=== PATIENT | female | born 1940 | race Caucasian/White ===

== ENCOUNTER 2017-12-10 06:26 | Day surgery (SDC) | payer MEDICARE ==
[2017-12-09 14:58] VITALS: BP 123/61
[2017-12-09 15:03] LABS: BASOPHILS % (AUTO) 2.2 % (0.0-5.0); EOSINOPHILS % (AUTO) 3.9 % (0.0-8.0); HEMATOCRIT 34.1 % (36-48); LYMPHOCYTES % (AUTO) 21.5 % (21.0-51.0); MEAN CORPUSCULAR HEMOGLOBIN 32.3 pg (27.0-33.0); MEAN CORPUSCULAR HGB CONC 33.6 g/dL (32.0-36.0); MEAN CORPUSCULAR VOLUME 96.2 fL (79-99); MONOCYTES % (AUTO) 8.6 % (3.0-13.0); NEUTROPHILS % (AUTO) 63.8 % (40.0-77.0); NUCLEATED RED BLOOD CELLS 0.1 % (0.0-0.19); PLATELET COUNT (AUTO) 189 K/uL (130-400); RED BLOOD CELL COUNT(AUTO) 3.55 MIL/uL (4.00-5.50); RED CELL DISTRIBUTION WIDTH 14.2 % (11.0-15.5); WHITE BLOOD COUNT (AUTO) 7.3 K/uL (4.8-10.8)
[2017-12-09 15:12] LABS: CREATININE 2.1 mg/dL (0.5-1.5); POTASSIUM 4.7 mmol/L (3.5-5.1)
[~2017-12-10] VITALS: Ht 149.9 cm; Wt 75.7 kg
[2017-12-10] VITALS (18 sets, daily range): BP systolic 99–113; BP diastolic 49–68
[2017-12-10] MEDS: CLINDAMYCIN 900 MG/D5% WATER 50 ML IV SCH ×2 (06:00→09:35)
[~2017-12-10 06:26] MED LIST: AMLO5TAB7 PO; ATEN50TA PO; FURO20TA6 PO; GABA-533 PO; HYDR-4064 PO; MULT-1258 PO; PANT40TA25 PO
[2017-12-10] MEDS ORDERED: LACTATED RINGERS 1000ML 1,000 ML IV ONE (07:35)
[2017-12-10] MEDS ORDERED: CLINDAMYCIN PHOSPHATE 150 MG/ML 6ML VIAL ONE (08:18)
[2017-12-10] MEDS ORDERED: LIDOCAINE PF 2% 5ML ABBOJECT ONE (08:31)
[2017-12-10] MEDS ORDERED: FENTANYL CITRATE PF 50 MCG/1 ML 2ML VIAL ONE (08:32)
[2017-12-10] MEDS ORDERED: PROPOFOL 10 MG/ML 20ML VIAL IV ONE (08:32)
[2017-12-10] MEDS ORDERED: FAMOTIDINE/PF 20 MG/2 ML VIAL IV ONE (08:35)
[2017-12-10] MEDS ORDERED: GLYCOPYRROLATE 1 MG/5 ML SYRINGE ONE (09:35)
[2017-12-10] MEDS ORDERED: PHENYLEPHRINE HCL 10 MG/ML 1ML VIAL IV ONE (09:39)
[2017-12-10] MEDS ORDERED: SODIUM CHLORIDE 0.9% 10 ML VIAL ONE (09:39)
[2017-12-10] MEDS ORDERED: LIDOCAINE HCL-MPF 1% 2ML VIAL ONE (10:28)
[2017-12-10] MEDS ORDERED: HYDR-4453 PO (10:41)
[2017-12-10] MEDS ORDERED: CLIN300C3 PO (10:41)
[2017-12-10] MEDS ORDERED: ONDANSETRON HCL 4 MG/2 ML VIAL ONE (10:42)
== END 2017-12-10 12:35 | disposition home or self-care (01) ==
LOC: DAH 06:26
PROVIDERS: ATTEND Orthopaedic Surgery
DX: G56.02 Carpal tunnel syndrome, left upper limb (principal); Z68.32 Body mass index [BMI] 32.0-32.9, adult; Z79.899 Other long term (current) drug therapy; M65.332 Trigger finger, left middle finger; M65.352 Trigger finger, left little finger; I10 Essential (primary) hypertension; K29.70 Gastritis, unspecified, without bleeding; Z98.890 Other specified postprocedural states; Z80.8 Family history of malignant neoplasm of other organs or systems; Z88.8 Allergy status to other drugs, medicaments and biological substances; Z88.0 Allergy status to penicillin; Z88.2 Allergy status to sulfonamides; M19.90 Unspecified osteoarthritis, unspecified site; E04.1 Nontoxic single thyroid nodule; K21.9 Gastro-esophageal reflux disease without esophagitis; I45.10 Unspecified right bundle-branch block
CPT/HCPCS: 26055 ×2; 36415; 64721; 80048; 85025; 93005; A4215; A4649; A4930 ×2; A6223; J2001; J2370; J2405; J2704; J3010; J3490 ×4; J7120

== ENCOUNTER 2018-11-06 11:04 | Emergency (ER) | payer MEDICARE ==
[~2018-11-06 11:04] MED LIST changes: -AMLO5TAB7 PO; +AMLO5TAB9 PO; +CLIN300C3 PO; +HYDR-4453 PO
[2018-11-06] MEDS ORDERED: DEXAMETHASONE SOD PHOSPHATE 10MG/ML 1ML VIAL ONE (12:40)
[2018-11-06] MEDS ORDERED: KETOROLAC TROMETHAMINE 15MG/ML ONE (12:41)
[2018-11-06 12:45] LABS: BASOPHILS % (AUTO) 2.2 % (0.0-5.0); EOSINOPHILS % (AUTO) 2.6 % (0.0-8.0); HEMATOCRIT 32.4 % (36-48); LYMPHOCYTES % (AUTO) 13.3 % (21.0-51.0); MEAN CORPUSCULAR HEMOGLOBIN 32.5 pg (27.0-33.0); MEAN CORPUSCULAR HGB CONC 33.6 g/dL (32.0-36.0); MEAN CORPUSCULAR VOLUME 96.7 fL (79-99); MONOCYTES % (AUTO) 9.3 % (3.0-13.0); NEUTROPHILS % (AUTO) 72.6 % (40.0-77.0); PLATELET COUNT (AUTO) 205 K/uL (130-400); RED BLOOD CELL COUNT(AUTO) 3.35 MIL/uL (4.00-5.50); RED CELL DISTRIBUTION WIDTH 15.1 % (11.0-15.5)
[2018-11-06 12:48] LABS: CREATININE 2.4 mg/dL (0.5-1.5); POTASSIUM 4.2 mmol/L (3.5-5.1)
[2018-11-06 12:53] LABS: BILIRUBIN,TOTAL 0.3 mg/dL (0.2-1.0); TOTAL PROTEIN, SERUM 7.2 g/dL (6.0-8.3)
[2018-11-06] MEDS ORDERED: KETAMINE 50MG/ML SYRINGE 50 MG/ML DISP.SYRIN IV ONE (16:25)
[2018-11-06] MEDS ORDERED: SODIUM CHLORIDE 0.9% 100 ML IV ONE (16:26)
== END 2018-11-06 17:38 | disposition home or self-care (01) ==
LOC: EDH 11:04
DX: M54.17 Radiculopathy, lumbosacral region (principal); M10.9 Gout, unspecified; I10 Essential (primary) hypertension; Z88.1 Allergy status to other antibiotic agents; Z88.0 Allergy status to penicillin; Z88.6 Allergy status to analgesic agent; Z88.2 Allergy status to sulfonamides; Z88.8 Allergy status to other drugs, medicaments and biological substances; Z90.49 Acquired absence of other specified parts of digestive tract; Z98.890 Other specified postprocedural states; Z87.891 Personal history of nicotine dependence
CPT/HCPCS: 36415; 80053; 85025; 96374; 96375; 99284; J1100; J1885; J3490

== ENCOUNTER 2018-11-14 17:48 | Inpatient (IN) | payer MEDICARE ==
[~2018-11-14] VITALS: Ht 152.4 cm; Wt 75.4 kg
[2018-11-14] MEDS ORDERED: MEROPENEM 500 MG VIAL ONE (18:19)
[2018-11-14] MEDS ORDERED: FLUCONAZOLE 100 MG TAB ONE (18:19)
[2018-11-14] MEDS ORDERED: ENOXAPARIN SODIUM 30 MG/0.3 ML SQ ONE (18:20)
[2018-11-14] MEDS ORDERED: ZYVOX 600 MG TAB ONE (18:20)
[2018-11-14] MEDS ORDERED: SODIUM CHLORIDE 0.9% 50 ML IV ONE (18:22)
[2018-11-14 18:39] LABS: BASOPHILS % (AUTO) 0.5 % (0.0-5.0); EOSINOPHILS % (AUTO) 0.3 % (0.0-8.0); HEMATOCRIT 36.4 % (36-48); LYMPHOCYTES % (AUTO) 6.1 % (21.0-51.0); MEAN CORPUSCULAR HGB CONC 33.4 g/dL (32.0-36.0); MEAN CORPUSCULAR VOLUME 95.8 fL (79-99); MONOCYTES % (AUTO) 4.4 % (3.0-13.0); NEUTROPHILS % (AUTO) 88.7 % (40.0-77.0); PLATELET COUNT (AUTO) 295 K/uL (130-400); RED CELL DISTRIBUTION WIDTH 15.2 % (11.0-15.5); WHITE BLOOD COUNT (AUTO) 23.2 K/uL (4.8-10.8)
[2018-11-14 19:00] LABS: ALBUMIN 3.5 g/dL (3.5-5.0); BILIRUBIN,DIRECT 0.1 mg/dL (0.0-0.3); BILIRUBIN,TOTAL 0.3 mg/dL (0.2-1.0); CREATININE 2.4 mg/dL (0.5-1.5); POTASSIUM 4.5 mmol/L (3.5-5.1); TOTAL PROTEIN, SERUM 7.3 g/dL (6.0-8.3)
[2018-11-14 19:09] LABS: B-TYPE NATRIURETIC PEPTIDE 118 pg/mL (0-100)
[2018-11-14] MEDS ORDERED: INSULIN HUMULIN R 100 UNIT/ML 3ML ONE (20:06)
[2018-11-14 20:28] LABS: APPEARANCE,URINE Clear (CLEAR); BILIRUBIN,URINE Negative (NEGATIVE); COLOR,URINE Yellow (YELLOW); GLUCOSE, URINE (UA) 500 mg/dL (NEGATIVE); KETONES,URINE Negative (NEGATIVE); LEUKOCYTE ESTERASE ,URINE Moderate (NEGATIVE); NITRATE,URINE Negative (NEGATIVE); OCCULT BLOOD,URINE Negative (NEGATIVE); PH,URINE 5.5 (5.0-8.0); PROTEIN,URINE Negative (NEGATIVE); UROBILINOGEN,URINE 0.2 mg/dL (0.2-1.0)
[2018-11-14 20:42] LABS: BACTERIA,URINE Few /HPF (None Seen); RBC,URINE 0-1 /HPF (0-1)
[2018-11-14] MEDS ORDERED: POTASSIUM CHLORIDE 20MEQ/100ML 100 ML IV PRN (20:45)
[2018-11-14] MEDS ORDERED: POTASSIUM CHLORIDE 20 MEQ ERTAB PO PRN (20:45)
[2018-11-14] MEDS ORDERED: LIDOCAINE HCL-MPF 1% 2ML VIAL IJ PRN (20:45)
[2018-11-14] MEDS ORDERED: ACETAMINOPHEN 325 MG TAB PO PRN (20:45)
[2018-11-14] MEDS ORDERED: POTASSIUM CHLORIDE 10% ELIXIR 20 MEQ/15 ML UDCUP PO PRN (20:45)
[2018-11-14] MEDS ORDERED: ONDANSETRON HCL 4 MG/2 ML VIAL IVP PRN (20:45)
[2018-11-14] MEDS ORDERED: ZOLPIDEM TARTRATE 5 MG TAB PO PRN (20:45)
[2018-11-14] MEDS ORDERED: SODIUM CHLORIDE 0.9% 10 ML VIAL IVP PRN (20:45)
[2018-11-14] MEDS ORDERED: DIPHENHYDRAMINE HCL 25 MG CAPSULE PO PRN (20:45)
[2018-11-14] MEDS: FAMOTIDINE 20MG TAB 20 MG TAB PO SCH (21:00)
[2018-11-14] MEDS ORDERED: IPRATROPIUM/ALBUTEROL SULFATE 3 ML SOLUTION IH ONE (21:59)
[2018-11-14] MEDS ORDERED: ACETYLCYSTEINE 20% 200MG/ML 4ML VIAL ONE (23:18)
[2018-11-14] MEDS: ACETYLCYSTEINE 20% 200MG/ML 4ML VIAL IH SCH (23:35)
[2018-11-14] MEDS: IPRATROPIUM/ALBUTEROL SULFATE 3 ML SOLUTION IH SCH (23:35)
[2018-11-15 04:45] VITALS: BP 136/69
--- NOTE | 2018-11-15 04:46 | NUR ---
ADMISSION. PT ADMITTED INTO ROOM 405 FROM ER. PT AWAKE, ALERT AND RESPONSIVE, NO C/O PAIN OR DISCOMFORT AT THIS TIME. NO C/O SHORTNESS OF BREATH AT THIS TIME. PT ORIENTED TO ROOM, CALL GARIBAY WITHIN REACH, BED IN LOWEST POSITION. Addendum: 11/15/18 at 0504 by SADE TIAN RN Amended: Links added.
[2018-11-15] MEDS ORDERED: GLUCAGON 1MG KIT 1 MG ML IM PRN (06:00)
[2018-11-15] MEDS ORDERED: DEXTROSE 50%-WATER 50 ML DISP.SYRIN IV PRN (06:00)
[2018-11-15 06:02] LABS: BASOPHILS % (AUTO) 0.4 % (0.0-5.0); EOSINOPHILS % (AUTO) 0.5 % (0.0-8.0); HEMATOCRIT 33.9 % (36-48); LYMPHOCYTES % (AUTO) 7.7 % (21.0-51.0); MEAN CORPUSCULAR HEMOGLOBIN 32.1 pg (27.0-33.0); MEAN CORPUSCULAR HGB CONC 33.4 g/dL (32.0-36.0); MONOCYTES % (AUTO) 4.3 % (3.0-13.0); NEUTROPHILS % (AUTO) 87.1 % (40.0-77.0); PLATELET COUNT (AUTO) 235 K/uL (130-400); RED BLOOD CELL COUNT(AUTO) 3.53 MIL/uL (4.00-5.50); RED CELL DISTRIBUTION WIDTH 15.3 % (11.0-15.5); WHITE BLOOD COUNT (AUTO) 18.4 K/uL (4.8-10.8)
[2018-11-15 06:09] LABS: CREATININE 2.2 mg/dL (0.5-1.5); POTASSIUM 4.7 mmol/L (3.5-5.1)
[2018-11-15 06:22] LABS: BILIRUBIN,DIRECT 0.1 mg/dL (0.0-0.3); BILIRUBIN,TOTAL 0.4 mg/dL (0.2-1.0); TOTAL PROTEIN, SERUM 6.3 g/dL (6.0-8.3)
[2018-11-15] MEDS: ZYVOX 600 MG TAB PO SCH ×3 (06:36→19:55)
[2018-11-15] MEDS: INSULIN HUMULIN R 100 UNIT/ML 3ML SQ SCH ×2 (06:39→17:10)
[2018-11-15] MEDS: IPRATROPIUM/ALBUTEROL SULFATE 3 ML SOLUTION IH SCH ×4 (06:56→23:40)
[2018-11-15] MEDS: ACETYLCYSTEINE 20% 200MG/ML 4ML VIAL IH SCH ×4 (06:56→23:40)
[2018-11-15 08:43] VITALS: BP 115/59
[2018-11-15] MEDS ORDERED: ATENOLOL 50 MG TABLET PO SCH (09:00)
[2018-11-15] MEDS: MULTIVITAMIN WITH MINERALS TABLET PO SCH (10:13)
[2018-11-15] MEDS: FLUCONAZOLE 100 MG TAB PO SCH (10:13)
[2018-11-15] MEDS: FUROSEMIDE 20 MG TABLET PO SCH (10:14)
[2018-11-15] MEDS: FAMOTIDINE 20MG TAB 20 MG TAB PO SCH ×2 (10:14→19:55)
[2018-11-15] MEDS: AMLODIPINE BESYLATE 5 MG TAB PO SCH (10:14)
[2018-11-15] MEDS: PANTOPRAZOLE SODIUM 40 MG TABLET.DR PO SCH (10:14)
[2018-11-15] MEDS: ENOXAPARIN SODIUM 30 MG/0.3 ML SQ SCH (10:15)
[2018-11-15] MEDS: GABAPENTIN 100 MG CAPSULE PO SCH ×2 (10:18→17:01)
[2018-11-15] MEDS: HYDROCODONE/ACETAMINOPHEN 7.5/325 MG TAB PO PRN ×2 (10:18→19:56)
[2018-11-15 11:32] VITALS: BP 123/61
[2018-11-15 11:33] VITALS: BP 123/61
[2018-11-15] MEDS ORDERED: FEBU40TA PO (12:09)
--- NOTE | 2018-11-15 15:00 | NUR ---
Notified Dr. Adam of resp cx preliminary results showing rare gram positive cocci in chains and clusters, and 1 plus gram negative rods. Rec'd order for zyvox; notified pt is already on this med. No further orders rec;d.
[2018-11-15 16:15] VITALS: BP 129/57
[2018-11-15 20:15] VITALS: BP 110/62
[2018-11-16] VITALS (7 sets, daily range): BP systolic 102–136; BP diastolic 53–68
[2018-11-16] MEDS: GABAPENTIN 100 MG CAPSULE PO SCH ×4 (00:13→20:20)
--- NOTE | 2018-11-16 01:35 | NUR ---
AFIB TELEMETRY CALLED MADE NURSE AWARE PT CONVERTED TO AFIB HR 130'S TO 140'S. PT STABLE, NO C/O CHEST PAIN OR DISCOMFORT, BP 130/65, O2SAT 96% ON ROOM AIR. DRIVER/GUIDE FOR DR. WISEMAN AWAITING CALL BACK.
--- NOTE | 2018-11-16 01:45 | NUR ---
HEART RHYTHM. PT CONTINUES TO BE STABLE, NO C/O CHEST PAIN AT THIS TIME. EKG DONE NSR, TELEMETRY CONFIRMED PT CONVERTED BACK TO SINUS RHYTHM AT 01:42 HEART RATE IN THE 90'S. PT RAN AFIB FROM 01:05 THROUGH 01:42, STILL AWAITING CALL BACK FROM .
[2018-11-16] MEDS: ACETYLCYSTEINE 20% 200MG/ML 4ML VIAL IH SCH ×4 (05:06→23:21)
[2018-11-16] MEDS: IPRATROPIUM/ALBUTEROL SULFATE 3 ML SOLUTION IH SCH (05:06)
[2018-11-16] MEDS ORDERED: DILTIAZEM HCL 60 MG TABLET PO STA (05:45)
[2018-11-16] MEDS ORDERED: DILTIAZEM HCL 60 MG TABLET ONE (05:49)
--- NOTE | 2018-11-16 05:50 | NUR ---
HEART RHYTHM TELEMETRY MADE NURSE AWARE FOR THE SECOND TIME TONIGHT THAT PT HAD CONVERTED BACK INTO AFIB HR 140-150'S AT 05:45. DR. SILVA MADE AWARE RECEIVED ORDER FOR CARDIZEM 30MG PO X1 DOSE NOW. INFORMED DR. SILVA THAT THE PREVIOUS TIME PT HAD CONVERTED INTO AFIB WAS AFTER HER BREATHING TREATMENT, WHICH PATIENT STATED MADE HER FEEL "SHAKY", AND THIS TIME AROUND WAS THE SAME, ALSO RECEIVED ORDERS TO DECREASE ALBUTEROL/ATROVENT ORDERS IN HALF CONTINUE SAME FREQUENCY. PT DOES NOT C/O CHEST PAIN OR DISCOMFORT AT THIS TIME. WILL CONTINUE TO MONITOR PT.
[2018-11-16 06:06] LABS: HEMATOCRIT 33.4 % (36-48); MEAN CORPUSCULAR HEMOGLOBIN 32.1 pg (27.0-33.0); MEAN CORPUSCULAR HGB CONC 33.3 g/dL (32.0-36.0); MEAN CORPUSCULAR VOLUME 96.3 fL (79-99); PLATELET COUNT (AUTO) 204 K/uL (130-400); RED BLOOD CELL COUNT(AUTO) 3.46 MIL/uL (4.00-5.50); RED CELL DISTRIBUTION WIDTH 15.2 % (11.0-15.5); WHITE BLOOD COUNT (AUTO) 19.1 K/uL (4.8-10.8)
[2018-11-16 06:33] LABS: BILIRUBIN,TOTAL 0.3 mg/dL (0.2-1.0); CREATININE 2.4 mg/dL (0.5-1.5); POTASSIUM 4.6 mmol/L (3.5-5.1); TOTAL PROTEIN, SERUM 6.2 g/dL (6.0-8.3)
[2018-11-16] MEDS: INSULIN HUMULIN R 100 UNIT/ML 3ML SQ SCH ×2 (06:50→16:44)
[2018-11-16 06:51] LABS: BAND NEUTROPHILS % (MANUAL) 4 % (0-2); EOSINOPHILS % (MANUAL) 3 % (1-6); LYMPHOCYTES % (MANUAL) 18 % (22-44); MAN.DIFF COMMENT-IMPRESSION MANUAL DIFFERENTIAL; MONOCYTES % (MANUAL) 4 % (2-9); REACTIVE LYMPHOCYTES 1 % (0-0); SEGMENTED NEUTROPHILS % 70 % (40-70)
[2018-11-16 06:52] LABS: PLATELET MORPHOLOGY COMMENT ADEQUATE
--- NOTE | 2018-11-16 07:00 | NUR ---
HEART RHYTHM PT BACK INTO SINUS RHYTHM AT THIS TIME. PT STABLE, NO C/O CHEST PAIN OR DISCOMFORT AT THIS TIME. REPORT GIVEN TO ONCOMING NURSE BHAVIN WHEELER.
[2018-11-16] MEDS ORDERED: PHARMACY COMMUNICATION MISC SCH (08:15)
[2018-11-16] MEDS: MEROPENEM 500 MG VIAL IVP SCH ×2 (10:36→16:41)
[2018-11-16] MEDS: ENOXAPARIN SODIUM 30 MG/0.3 ML SQ SCH (10:37)
[2018-11-16] MEDS: METHYLPREDNISOLONE SOD SUCC 125MG/2ML VIAL IVP SCH ×2 (10:37→20:20)
[2018-11-16] MEDS: METOPROLOL TARTRATE 25 MG TAB PO SCH ×2 (10:38→20:20)
[2018-11-16] MEDS: FLUCONAZOLE 100 MG TAB PO SCH (10:39)
[2018-11-16] MEDS: PANTOPRAZOLE SODIUM 40 MG TABLET.DR PO SCH (10:39)
[2018-11-16] MEDS: AMLODIPINE BESYLATE 5 MG TAB PO SCH (10:39)
[2018-11-16] MEDS: MULTIVITAMIN WITH MINERALS TABLET PO SCH (10:39)
[2018-11-16] MEDS: FAMOTIDINE 20MG TAB 20 MG TAB PO SCH ×2 (10:39→20:19)
[2018-11-16] MEDS: FUROSEMIDE 20 MG TABLET PO SCH (10:39)
[2018-11-16] MEDS: ZYVOX 600 MG TAB PO SCH ×2 (10:39→20:19)
[2018-11-16] MEDS: HYDROCODONE/ACETAMINOPHEN 7.5/325 MG TAB PO PRN ×2 (10:43→20:20)
[2018-11-16] MEDS: IPRATROPIUM 0.5 MG/2.5 ML INH IH SCH ×3 (11:15→23:21)
[2018-11-16] MEDS: ALBUTEROL SULFATE 0.042% 1.25 MG/3 ML INH IH SCH ×3 (11:21→23:21)
--- NOTE | 2018-11-16 15:00 | NUR ---
INITIAL- DISCUSSED AFTERCARE MET W PT, WHO STATES' I AM VERY VERY SICK' STATES LIVES W SPOUSE [place] IN AN RV PARK WITH DAUGHTER AND NEICE CLOSE BY. SPOUSE IS CURRENTLY IN [place] 'TO RECOVER FROM PNEUMONIA' SHERLY IS SAFE AND ACCESSIBLE INSIDE, 4 STEPS UP INTO HOME, USES A CANE 100 % OF THE TIME, IS INPD OF ADLS, SPOUSE AND PT "HELP EACH OTHER WITH THINGS, WE ARE BOTH WEAK' , DOES NOT DRIVE, NIECE DRIVES TO APPOINTMENTS, ETC. SEES DR. SCHNEIDER REGULARLY. [facility] . WILL FOLLOW FOR MD RECOMMENDATIONS Addendum: 11/17/18 at 1507 by VASILE RAMOS RN Amended: Links added.
[2018-11-16] MEDS: APIXABAN 5 MG TABLET PO SCH (16:41)
[2018-11-17 00:15] VITALS: BP 112/61
[2018-11-17] MEDS: MEROPENEM 500 MG VIAL IVP SCH (00:55)
[2018-11-17 04:16] VITALS: BP 107/68
[2018-11-17 05:41] LABS: HEMATOCRIT 30.5 % (36-48); MEAN CORPUSCULAR HGB CONC 33.7 g/dL (32.0-36.0); MEAN CORPUSCULAR VOLUME 97.8 fL (79-99); PLATELET COUNT (AUTO) 171 K/uL (130-400); RED BLOOD CELL COUNT(AUTO) 3.11 MIL/uL (4.00-5.50); RED CELL DISTRIBUTION WIDTH 15.2 % (11.0-15.5); WHITE BLOOD COUNT (AUTO) 15.5 K/uL (4.8-10.8)
[2018-11-17 06:03] LABS: CREATININE 2.9 mg/dL (0.5-1.5); POTASSIUM 5.3 mmol/L (3.5-5.1); THYROID STIMULATING HORMONE 0.5 uIU/mL (0.36-3.74)
[2018-11-17] MEDS: INSULIN HUMULIN R 100 UNIT/ML 3ML SQ SCH ×2 (06:04→16:29)
[2018-11-17 06:08] LABS: BAND NEUTROPHILS % (MANUAL) 3 % (0-2); LYMPHOCYTES % (MANUAL) 5 % (22-44); MAN.DIFF COMMENT-IMPRESSION MANUAL DIFFERENTIAL; MONOCYTES % (MANUAL) 5 % (2-9); SEGMENTED NEUTROPHILS % 87 % (40-70)
[2018-11-17] MEDS: ACETYLCYSTEINE 20% 200MG/ML 4ML VIAL IH SCH ×4 (06:09→23:28)
[2018-11-17] MEDS: APIXABAN 5 MG TABLET PO SCH ×2 (06:09→17:23)
[2018-11-17] MEDS: IPRATROPIUM 0.5 MG/2.5 ML INH IH SCH ×4 (06:09→23:28)
[2018-11-17] MEDS: ALBUTEROL SULFATE 0.042% 1.25 MG/3 ML INH IH SCH ×4 (06:09→23:28)
--- NOTE | 2018-11-17 06:51 | NUR ---
CRITICAL RESULTS GLUCOSE DRAWN BY NUCLEAR EQUIPMENT RESEARCH ENGINEER RESULT: 520. LAB DRAW GLUCOSE RANDOM RESULT: 512 AT 06:05. MD WISEMAN PAGED AT 06:09, PENDING CALL BACK. 16 UNITS OF REGULAR INSULIN ADMINISTERED PER SLIDING SCALE. GLUCOSE RECHECKED AT 06:35 RESULTS: 453. MADE AWARE AT 06:40 OF CRITICAL GLUCOSE, AND CRITICAL RESULTS OF BUN: 77, CREAT: 2.9, AND POTASSIUM: 5.3 STATED "OKAY I WILL BE IN TO SEE THE PATIENT".
[2018-11-17 07:55] VITALS: BP 127/72
[2018-11-17] MEDS: PANTOPRAZOLE SODIUM 40 MG TABLET.DR PO SCH (09:41)
[2018-11-17] MEDS: 1/2 NORMAL SALINE 1,000 ML IV SCH ×2 (09:41→16:36)
[2018-11-17] MEDS: CEFAZOLIN SODIUM 1 GM VIAL IVP SCH ×3 (09:41→23:53)
[2018-11-17] MEDS: AMLODIPINE BESYLATE 5 MG TAB PO SCH (09:41)
[2018-11-17] MEDS: METOPROLOL TARTRATE 25 MG TAB PO SCH ×2 (09:41→19:58)
[2018-11-17] MEDS: FUROSEMIDE 20 MG TABLET PO SCH (09:41)
[2018-11-17] MEDS: FAMOTIDINE 20MG TAB 20 MG TAB PO SCH ×2 (09:41→19:58)
[2018-11-17] MEDS: MULTIVITAMIN WITH MINERALS TABLET PO SCH (09:41)
[2018-11-17] MEDS: GABAPENTIN 100 MG CAPSULE PO SCH ×3 (09:42→20:26)
[2018-11-17] MEDS: HYDROCODONE/ACETAMINOPHEN 7.5/325 MG TAB PO PRN ×2 (10:03→19:58)
[2018-11-17 11:00] VITALS: BP 108/56
[2018-11-17] MEDS ORDERED: CEFTRIAXONE SODIUM 2 GM VIAL IVP SCH (14:00)
[2018-11-17 16:00] VITALS: BP 130/68
[2018-11-17 20:16] VITALS: BP 114/58
[2018-11-18 00:16] VITALS: BP 122/60
[2018-11-18 04:04] LABS: HEMATOCRIT 29.9 % (36-48); MEAN CORPUSCULAR HGB CONC 33.9 g/dL (32.0-36.0); MEAN CORPUSCULAR VOLUME 97.4 fL (79-99); NUCLEATED RED BLOOD CELLS 0.1 % (0.0-0.19); PLATELET COUNT (AUTO) 148 K/uL (130-400); RED BLOOD CELL COUNT(AUTO) 3.07 MIL/uL (4.00-5.50); RED CELL DISTRIBUTION WIDTH 15.8 % (11.0-15.5); WHITE BLOOD COUNT (AUTO) 20.6 K/uL (4.8-10.8)
[2018-11-18 04:15] VITALS: BP 158/72
[2018-11-18 04:29] LABS: ALBUMIN 2.7 g/dL (3.5-5.0); BILIRUBIN,TOTAL 0.2 mg/dL (0.2-1.0); CREATININE 2.1 mg/dL (0.5-1.5); POTASSIUM 4.8 mmol/L (3.5-5.1); TOTAL PROTEIN, SERUM 5.9 g/dL (6.0-8.3)
[2018-11-18] MEDS: APIXABAN 5 MG TABLET PO SCH (05:15)
[2018-11-18] MEDS: 1/2 NORMAL SALINE 1,000 ML IV SCH (05:20)
[2018-11-18] MEDS: INSULIN HUMULIN R 100 UNIT/ML 3ML SQ SCH (06:05)
[2018-11-18] MEDS: IPRATROPIUM 0.5 MG/2.5 ML INH IH SCH (06:41)
[2018-11-18] MEDS: ALBUTEROL SULFATE 0.042% 1.25 MG/3 ML INH IH SCH (06:41)
[2018-11-18] MEDS: ACETYLCYSTEINE 20% 200MG/ML 4ML VIAL IH SCH (06:41)
[2018-11-18 08:00] VITALS: BP 137/67
[2018-11-18] MEDS: CEFAZOLIN SODIUM 1 GM VIAL IVP SCH (08:51)
[2018-11-18] MEDS: MULTIVITAMIN WITH MINERALS TABLET PO SCH (08:51)
[2018-11-18] MEDS: PANTOPRAZOLE SODIUM 40 MG TABLET.DR PO SCH (08:51)
[2018-11-18] MEDS: METOPROLOL TARTRATE 25 MG TAB PO SCH (08:51)
[2018-11-18] MEDS: FAMOTIDINE 20MG TAB 20 MG TAB PO SCH (08:51)
[2018-11-18] MEDS: FUROSEMIDE 20 MG TABLET PO SCH (08:52)
[2018-11-18] MEDS: AMLODIPINE BESYLATE 5 MG TAB PO SCH (08:52)
[2018-11-18] MEDS: GABAPENTIN 100 MG CAPSULE PO SCH (08:52)
[2018-11-18] MEDS: HYDROCODONE/ACETAMINOPHEN 7.5/325 MG TAB PO PRN (08:57)
[2018-11-18 11:52] VITALS: BP 131/71
[2018-11-18] MEDS ORDERED: APIX5TAB PO ×2 (11:59→12:00)
[2018-11-18] MEDS ORDERED: CEPH500B PO (12:01)
[2018-11-18] MEDS ORDERED: PRED20TA3 PO (12:01)
[2018-11-18] MEDS ORDERED: METO25TA6 PO (12:08)
--- NOTE | 2018-11-18 12:32 | NUR ---
PT D/C WITH EXTENSIVE D/C INSTRUCTIONS USING TEACH BACK IV REMOVED, CATHETER REMOVED TIP INTACT PT TEACH BACK ON ALL HER NEW MEDICATIONS AND INSTRUCTED TO STOP THE ATENOLOL PT WAITING FOR
--- NOTE | 2018-11-18 12:53 | NUR ---
PT D/C PT STILL WAITING FOR HUSBANDTO GET D/C FROM [facility] TO PICK HER UP
--- NOTE | 2018-11-18 15:17 | NUR ---
PT still waiting on to be d/c from [facility] to pick her up
== END 2018-11-18 16:36 | disposition home or self-care (01) | DRG 190 ==
LOC: EDH 17:48 → EDHIP 17:49 → OBSVTOIN 17:49 → 4BH 11-15 04:22
PROVIDERS: ADMIT Internal Medicine; ATTEND Internal Medicine
DX: J44.1 Chronic obstructive pulmonary disease with (acute) exacerbation (principal); J15.0 Pneumonia due to Klebsiella pneumoniae; E87.1 Hypo-osmolality and hyponatremia; J44.0 Chronic obstructive pulmonary disease with (acute) lower respiratory infection; I48.91 Unspecified atrial fibrillation; D64.9 Anemia, unspecified; D72.829 Elevated white blood cell count, unspecified; I10 Essential (primary) hypertension; E78.5 Hyperlipidemia, unspecified; M10.9 Gout, unspecified; Z79.01 Long term (current) use of anticoagulants; Z88.9 Allergy status to unspecified drugs, medicaments and biological substances; G89.29 Other chronic pain; Z88.1 Allergy status to other antibiotic agents; Z88.0 Allergy status to penicillin; Z88.2 Allergy status to sulfonamides; Z88.8 Allergy status to other drugs, medicaments and biological substances
CPT/HCPCS: 36415; 71046; 71250; 80048; 80053; 80076; 81001; 82947; 82948; 83880; 84443; 85025; 85027; 87071; 87077; 87186; 87205; 93005; 93306; 94640; 94664; G0378; J0690; J1650; J1815; J2185; J2930; J7608

== ENCOUNTER 2023-06-08 10:45 | Emergency (ER) | payer OTHER ==
[~2023-06-08] VITALS: Ht 152.4 cm; Wt 72.6 kg
[~2023-06-08 10:45] MED LIST changes: +AMLO-257 PO; -AMLO5TAB9 PO; +APIX2.5T PO; -ATEN50TA PO; -CLIN300C3 PO; +FEBU40TA PO; -GABA-533 PO; -HYDR-4064 PO; +HYDR-4068 PO; -HYDR-4453 PO; -MULT-1258 PO; +OXYB-66 PO; -PANT40TA25 PO; +PANT40TA54 PO
[2023-06-08] MEDS: LACTATED RINGERS 1000ML 1,000 ML IV ONE (11:53)
[2023-06-08 12:00] LABS: BASOPHILS # (AUTO) 0.12 K/uL (0.00-0.20); BASOPHILS % (AUTO) 3.2 % (0.0-5.0); EOSINOPHILS # (AUTO) 0.19 K/uL (0.00-0.70); EOSINOPHILS % (AUTO) 5.1 % (0.0-8.0); HEMATOCRIT 22.2 % (36-48); IMMATURE GRANULOCYTE ABSOLUTE 0.04 K/uL (0-1); LYMPHOCYTES # (AUTO) 0.5 K/uL (1.0-4.8); LYMPHOCYTES % (AUTO) 13.9 % (21.0-51.0); MEAN CORPUSCULAR HEMOGLOBIN 32.7 pg (27.0-33.0); MEAN CORPUSCULAR HGB CONC 32.9 g/dL (32.0-36.0); MEAN CORPUSCULAR VOLUME 99.6 fL (79-99); MONOCYTES # (AUTO) 0.3 K/uL (0.1-1.0); MONOCYTES % (AUTO) 8.8 % (3.0-13.0); NEUTROPHILS # (AUTO) 2.5 K/uL (1.8-7.7); NEUTROPHILS % (AUTO) 67.9 % (40.0-77.0); PLATELET COUNT (AUTO) 322 K/uL (130-400); RED BLOOD CELL COUNT(AUTO) 2.23 MIL/uL (4.00-5.50); RED CELL DISTRIBUTION WIDTH 20.4 % (11.0-15.5); WHITE BLOOD COUNT (AUTO) 3.7 K/uL (4.8-10.8)
[2023-06-08] MEDS: PANTOPRAZOLE 40 MG/VIAL IVP ONE (12:12)
[2023-06-08] MEDS: ONDANSETRON 4MG INJ IVP ONE (12:13)
[2023-06-08] MEDS: KETOROLAC 15MG/ML VIAL (15MG/ML) IV ONE (12:13)
[2023-06-08 12:18] LABS: ALBUMIN 3.1 g/dL (3.5-5.0); BILIRUBIN,TOTAL 0.4 mg/dL (0.2-1.0); CREATININE 1.4 mg/dL (0.5-1.0); POTASSIUM 4.4 mmol/L (3.5-5.1); TOTAL PROTEIN, SERUM 6.1 g/dL (6.0-8.3)
[2023-06-08 12:21] LABS: B-TYPE NATRIURETIC PEPTIDE 645 pg/mL (0-100)
[2023-06-08 14:34] LABS: APPEARANCE,URINE CLEAR (CLEAR); BILIRUBIN,URINE NEGATIVE (NEGATIVE); COLOR,URINE YELLOW (YELLOW); GLUCOSE, URINE (UA) NEGATIVE (NEGATIVE); KETONES,URINE NEGATIVE (NEGATIVE); LEUKOCYTE ESTERASE ,URINE NEGATIVE Leu/uL (NEGATIVE); NITRATE,URINE NEGATIVE (NEGATIVE); OCCULT BLOOD,URINE NEGATIVE (NEGATIVE); PH,URINE 5.5 (5.0-8.0); PROTEIN,URINE NEGATIVE (NEGATIVE); UROBILINOGEN,URINE 0.2 mg/dL (0.2-1.0)
[2023-06-08 14:36] LABS: ADD UA MICROSCOPIC YES
[2023-06-08 14:39] LABS: HYALINE CASTS, URINE 0-1 /LPF (0-1 /LPF); RBC,URINE 0-1 /HPF (0-1); SQUAMOUS EPITHELIAL CELL,UR RARE /HPF (0-2); WBC,URINE 0-1 /HPF (0-1)
[2023-06-08] MEDS ORDERED: METO-296 PO (17:36)
[2023-06-08] MEDS ORDERED: CYCL10TA16 PO (17:36)
[2023-06-08] MEDS: ACETAMINOPHEN 500 MG TABLET PO ONE (17:45)
[2023-06-08 18:15] VITALS: BP 123/45; PULSE 82; RESP 17; O2SAT 94
== END 2023-06-08 18:24 | disposition home or self-care (01) ==
LOC: EDH 10:45
DX: G89.29 Other chronic pain (principal); R10.9 Unspecified abdominal pain; K59.00 Constipation, unspecified; I10 Essential (primary) hypertension; M19.90 Unspecified osteoarthritis, unspecified site; D64.9 Anemia, unspecified; Z79.899 Other long term (current) drug therapy; Z98.890 Other specified postprocedural states; E86.0 Dehydration; Z88.0 Allergy status to penicillin; Z88.1 Allergy status to other antibiotic agents; Z88.2 Allergy status to sulfonamides; Z88.5 Allergy status to narcotic agent; Z88.8 Allergy status to other drugs, medicaments and biological substances
CPT/HCPCS: 86870; 99283; 96374; 96361; 96375; 84484; 80053; 83880; 83690; 85025; 86850; 86900; 86922 ×2; 86901; 81001; 36415; 74018; J7120; J2405; C9113; J1885